=== PATIENT | female | born 1995 | race Caucasian/White ===

== ENCOUNTER 2017-04-15 21:09 | Emergency (ER) | payer OTHER ==
[~2017-04-15] VITALS: Ht 167.6 cm; Wt 65.8 kg
[~2017-04-15 21:09] MED LIST: AMOXICILLIN500 M2 PO; AMOXICILLIN500 M3 PO; AMOXICILLIN500 MG PO; AMOXIL500 MG PO; AVPAK AZITHROM250 MG PO; CEPHALEXIN500 M1 PO; CLARITIN10 MG PO; COLACE-T100 MG PO; FLONASE ALLERG9.9 ML NAS; HYDROCODONE BIT1 T11 PO; IBUPROFEN600 MG PO; MACROBID100 M1 PO; Motrin,Rufen800 MG PO; NKHM; PERCOCET 325 MG1 TA2 PO; PREDNISONE10 MG PO; PRENA; PRENATAL1 TA3 PO; PROZAC20 MG PO; Percocet 325 MG1 TAB PO; ROBITUSSIN AC 110 ML PO; SUPREX FERROUS325 MG PO
[2017-04-15 21:31] LABS: HEMATOCRIT 37.5 % (37.0-47.0); HEMOGLOBIN 12.5 g/dl (12.0-16.0); MEAN CELL VOLUME 86.4 fl (81.0-99.0); MEAN CORPUSCULAR HGB 28.8 pg (27.0-31.0); MEAN CORPUSCULAR HGB CONC 33.3 g/dl (33.0-37.0); MEAN PLATELET VOLUME 10.4 fl (9.6-12.3); PLATELET COUNT AUTOMATED 162 10*3/uL (130-400); RED BLOOD COUNT 4.34 10*6/uL (4.10-5.10); WHITE BLOOD COUNT 5.2 10*3/uL (4.8-10.8)
[2017-04-15 22:05] LABS: EOSINOPHIL # 0.1 10*3/uL (0-0.4); EOSINOPHILS 2 % (1-4); LYMPHOCYTE # 1.7 10*3/uL (1.3-4.4); MONOCYTE # 0.2 10*3/uL (0.1-1.0); NEUTROPHIL # 3.2 10*3/uL (2.3-7.9); NEUTROPHILS 61 % (47-73); TOTAL CELLS COUNTED 100 #CELLS
[2017-04-15 22:06] LABS: PLATELET SUFFICIENCY NORMAL (NORMAL)
[2017-04-15] MEDS ORDERED: Motrin,Rufen800 MG PO (22:52)
[2017-04-15] MEDS ORDERED: AMOXICILLIN500 M2 PO (22:52)
== END 2017-04-15 23:26 | disposition home or self-care (01) ==
LOC: ED 21:09
PROVIDERS: Emergency Medicine Emergency Medical Services
DX: J40 Bronchitis, not specified as acute or chronic (principal); J02.0 Streptococcal pharyngitis; F17.200 Nicotine dependence, unspecified, uncomplicated; Z79.899 Other long term (current) drug therapy

== ENCOUNTER 2017-05-04 09:58 | Emergency (ER) | payer OTHER ==
[~2017-05-04] VITALS: Ht 167.6 cm; Wt 65.8 kg
[2017-05-04 10:36] LABS: BILIRUBIN NEGATIVE (NEGATIVE); BLOOD NEGATIVE (NEGATIVE); CLARITY SL CLOUDY (CLEAR); COLOR YELLOW (YELLOW); GLUCOSE NEGATIVE (NEGATIVE); KETONE NEGATIVE (NEGATIVE); LEUKO ESTERASE 1+ (NEGATIVE); NITRITE NEGATIVE (NEGATIVE); PROTEIN NEGATIVE (NEGATIVE); SPECIFIC GRAVITY 1.015 (1.005-1.030); UROBILINOGEN 0.2 E.U./dl (0.2-1.0)
[2017-05-04 10:36] LABS: HEMATOCRIT 36.3 % (37.0-47.0); HEMOGLOBIN 11.9 g/dl (12.0-16.0); MEAN CELL VOLUME 86.8 fl (81.0-99.0); MEAN CORPUSCULAR HGB 28.5 pg (27.0-31.0); MEAN CORPUSCULAR HGB CONC 32.8 g/dl (33.0-37.0); MEAN PLATELET VOLUME 10.1 fl (9.6-12.3); PLATELET COUNT AUTOMATED 160 10*3/uL (130-400); RED BLOOD COUNT 4.18 10*6/uL (4.10-5.10); RED CELL DISTRI WIDTH 14.1 % (0-14.5); WHITE BLOOD COUNT 4.3 10*3/uL (4.8-10.8)
[2017-05-04 10:41] LABS: BACTERIA TRACE; MUCOUS 1+; URINE REFLEX COMMENT YES (NO)
[2017-05-04 10:51] LABS: ALBUMIN 3.4 gm/dl (3.1-4.5); ALKALINE PHOSPHATASE 94 U/L (45-117); BILIRUBIN, TOTAL 0.7 mg/dl (0.2-1.0); BUN 8 mg/dl (7-24); CARBON DIOXIDE 26 mmol/L (21-32); CHLORIDE 106 mmol/L (98-107); EST GLOM FILT AFRICAN AMERICAN > 60 ml/min; GLUCOSE 89 mg/dL (65-99); POTASSIUM 3.7 mmol/L (3.5-5.1); SGOT/AST 53 IU/L (3-35); SGPT/ALT 52 U/L (12-78); SODIUM 138 mmol/L (136-145); TOTAL PROTEIN 7.1 gm/dL (6.4-8.2)
[2017-05-04 11:01] LABS: ATYPICAL LYMPHS 2 % (0-0); BASOPHILS 1 % (0-1); LYMPHOCYTE # 1.7 10*3/uL (1.3-4.4); MONOCYTE # 0.1 10*3/uL (0.1-1.0); NEUTROPHIL # 2.5 10*3/uL (2.3-7.9); NEUTROPHILS 58 % (47-73); PLATELET SUFFICIENCY NORMAL (NORMAL); TOTAL CELLS COUNTED 100 #CELLS
[2017-05-04] MEDS ORDERED: ZOFRAN ODT4 MG SL (11:11)
[2017-05-04] MEDS ORDERED: BACTRIM DS 8001 TA1 PO (11:11)
== END 2017-05-04 11:16 | disposition home or self-care (01) ==
LOC: ED 09:58
PROVIDERS: Registered Nurse
DX: N30.00 Acute cystitis without hematuria (principal); K52.9 Noninfective gastroenteritis and colitis, unspecified; F17.200 Nicotine dependence, unspecified, uncomplicated; Z79.899 Other long term (current) drug therapy

== ENCOUNTER 2017-05-08 08:50 | Inpatient (IN) | payer OTHER ==
[~2017-05-08] VITALS: Ht 167.6 cm; Wt 62.3 kg
[~2017-05-08 08:50] MED LIST changes: +BACTRIM DS 8001 TA1 PO; +ZOFRAN ODT4 MG SL
[2017-05-08 08:58] VITALS: BP 115/56
[2017-05-08 09:28] LABS: HEMATOCRIT 33.4 % (37.0-47.0); HEMOGLOBIN 11.1 g/dl (12.0-16.0); MEAN CELL VOLUME 85.6 fl (81.0-99.0); MEAN CORPUSCULAR HGB 28.5 pg (27.0-31.0); MEAN CORPUSCULAR HGB CONC 33.2 g/dl (33.0-37.0); MEAN PLATELET VOLUME 10.6 fl (9.6-12.3); PLATELET COUNT AUTOMATED 118 10*3/uL (130-400); RED CELL DISTRI WIDTH 13.8 % (0-14.5); WHITE BLOOD COUNT 2.8 10*3/uL (4.8-10.8)
[2017-05-08 09:45] LABS: ALBUMIN 3.4 gm/dl (3.1-4.5); ALKALINE PHOSPHATASE 128 U/L (45-117); BILIRUBIN, TOTAL 0.3 mg/dl (0.2-1.0); BUN 5 mg/dl (7-24); CARBON DIOXIDE 22 mmol/L (21-32); CHLORIDE 104 mmol/L (98-107); EST GLOM FILT AFRICAN AMERICAN > 60 ml/min; GLUCOSE 82 mg/dL (65-99); POTASSIUM 3.5 mmol/L (3.5-5.1); SGOT/AST 102 IU/L (3-35); SGPT/ALT 69 U/L (12-78); SODIUM 136 mmol/L (136-145); TOTAL PROTEIN 7.3 gm/dL (6.4-8.2)
[2017-05-08 09:46] LABS: BILIRUBIN 1+ (NEGATIVE); BLOOD NEGATIVE (NEGATIVE); CLARITY SL CLOUDY (CLEAR); COLOR YELLOW (YELLOW); GLUCOSE NEGATIVE (NEGATIVE); KETONE TRACE (NEGATIVE); LEUKO ESTERASE 3+ (NEGATIVE); NITRITE NEGATIVE (NEGATIVE); PROTEIN NEGATIVE (NEGATIVE); SPECIFIC GRAVITY 1.025 (1.005-1.030)
[2017-05-08 09:51] LABS: ATYPICAL LYMPHS 2 % (0-0); EOSINOPHIL # 0.2 10*3/uL (0-0.4); EOSINOPHILS 6 % (1-4); LYMPHOCYTE # 0.9 10*3/uL (1.3-4.4); MONOCYTE # 0.1 10*3/uL (0.1-1.0); NEUTROPHIL # 1.7 10*3/uL (2.3-7.9); NEUTROPHILS 59 % (47-73); TOTAL CELLS COUNTED 100 #CELLS
[2017-05-08 09:52] LABS: PLATELET SUFFICIENCY LOW (NORMAL)
[2017-05-08 09:54] LABS: WBC 31-40 wbc/hpf (0-5)
[2017-05-08 09:55] LABS: MUCOUS TRACE; URINE REFLEX COMMENT YES (NO)
[2017-05-08 09:57] VITALS: BP 99/49
[2017-05-08 11:00] VITALS: BP 99/60
[2017-05-08 12:00] VITALS: BP 99/60
[2017-05-08 16:00] VITALS: BP 104/64
[2017-05-08 20:00] VITALS: BP 105/54
[2017-05-09] VITALS: BP 96/56
[2017-05-09 06:17] LABS: HEMATOCRIT 29.5 % (37.0-47.0); HEMOGLOBIN 9.4 g/dl (12.0-16.0); MEAN CELL VOLUME 88.1 fl (81.0-99.0); MEAN CORPUSCULAR HGB 28.1 pg (27.0-31.0); MEAN CORPUSCULAR HGB CONC 31.9 g/dl (33.0-37.0); MEAN PLATELET VOLUME 10.8 fl (9.6-12.3); PLATELET COUNT AUTOMATED 93 10*3/uL (130-400); RED BLOOD COUNT 3.35 10*6/uL (4.10-5.10); RED CELL DISTRI WIDTH 14.2 % (0-14.5); WHITE BLOOD COUNT 2.2 10*3/uL (4.8-10.8)
[2017-05-09 06:30] LABS: ALBUMIN 2.4 gm/dl (3.1-4.5); ALKALINE PHOSPHATASE 108 U/L (45-117); BILIRUBIN, TOTAL 0.2 mg/dl (0.2-1.0); BUN 4 mg/dl (7-24); CARBON DIOXIDE 21 mmol/L (21-32); CHLORIDE 113 mmol/L (98-107); CHOLESTEROL 52 mg/dL (<200); EST GLOM FILT AFRICAN AMERICAN > 60 ml/min; FREE T4 1.22 ng/dl (0.76-1.46); GLUCOSE 82 mg/dL (65-99); HDL CHOLESTEROL 24 mg/dl (40-60); LDL CHOLESTEROL 20 mg/dL (9-159); MAGNESIUM 1.5 mg/dL (1.5-2.1); PHOSPHOROUS 2.7 mg/dL (2.5-4.9); POTASSIUM 3.5 mmol/L (3.5-5.1); SGOT/AST 85 IU/L (3-35); SGPT/ALT 63 U/L (12-78); SODIUM 143 mmol/L (136-145); TOTAL PROTEIN 5.4 gm/dL (6.4-8.2); TRIGLYCERIDES 41 mg/dl (<150); VLDL CHOLESTEROL 8 mg/dL (6-40)
[2017-05-09 06:40] LABS: INTERNATIONAL NORM RATIO 1.2 (2.0-3.5); PROTHROMBIN TIME 12.3 SECONDS (9.0-12.4)
[2017-05-09 06:47] LABS: ATYPICAL LYMPHS 3 % (0-0); EOSINOPHIL # 0.2 10*3/uL (0-0.4); EOSINOPHILS 9 % (1-4); LYMPHOCYTE # 1.3 10*3/uL (1.3-4.4); METAMYELOCYTES 1 % (0-0); NEUTROPHIL # 0.7 10*3/uL (2.3-7.9); NEUTROPHILS 31 % (47-73); PLATELET SUFFICIENCY LOW (NORMAL); TOTAL CELLS COUNTED 100 #CELLS
[2017-05-09 06:53] LABS: HEMOGLOBIN A1c 4.8 % (4.8-5.6)
[2017-05-09 08:00] VITALS: BP 90/50
[2017-05-09 09:27] LABS: VITAMIN D, 25-HYDROXY 38.3 ng/mL (30-100)
[2017-05-09 09:28] LABS: FOLIC ACID 6.12 ng/mL (>5.38)
[2017-05-09 12:00] VITALS: BP 100/62
[2017-05-09 16:00] VITALS: BP 111/64
[2017-05-09 20:00] VITALS: BP 106/65
[2017-05-10] VITALS: BP 107/67
[2017-05-10 06:29] LABS: HEMATOCRIT 28.2 % (37.0-47.0); HEMOGLOBIN 9.4 g/dl (12.0-16.0); MEAN CELL VOLUME 86.8 fl (81.0-99.0); MEAN CORPUSCULAR HGB 28.9 pg (27.0-31.0); MEAN CORPUSCULAR HGB CONC 33.3 g/dl (33.0-37.0); MEAN PLATELET VOLUME 10.9 fl (9.6-12.3); PLATELET COUNT AUTOMATED 88 10*3/uL (130-400); RED BLOOD COUNT 3.25 10*6/uL (4.10-5.10); RED CELL DISTRI WIDTH 14.1 % (0-14.5); WHITE BLOOD COUNT 2.9 10*3/uL (4.8-10.8)
[2017-05-10 06:54] LABS: BUN 5 mg/dl (7-24); CARBON DIOXIDE 20 mmol/L (21-32); CHLORIDE 113 mmol/L (98-107); EST GLOM FILT AFRICAN AMERICAN > 60 ml/min; GLUCOSE 87 mg/dL (65-99); POTASSIUM 3.6 mmol/L (3.5-5.1); SODIUM 141 mmol/L (136-145)
[2017-05-10 07:04] LABS: ATYPICAL LYMPHS 1 % (0-0); BASOPHIL # 0.1 10*3/uL (0-0.1); BASOPHILS 2 % (0-1); EOSINOPHIL # 0.1 10*3/uL (0-0.4); EOSINOPHILS 4 % (1-4); LYMPHOCYTE # 1.9 10*3/uL (1.3-4.4); MONOCYTE # 0.1 10*3/uL (0.1-1.0); NEUTROPHIL # 0.8 10*3/uL (2.3-7.9); NEUTROPHILS 26 % (47-73); PLATELET SUFFICIENCY LOW (NORMAL); TOTAL CELLS COUNTED 100 #CELLS
[2017-05-10 08:00] VITALS: BP 111/59
[2017-05-10 12:00] VITALS: BP 114/61
== END 2017-05-10 16:39 | disposition home or self-care (01) | DRG 871 ==
LOC: ED 08:50 → 5E 10:07 → EDHOLD 10:07 → 5E 10:25
PROVIDERS: Hospitalist; Internal Medicine Nephrology; Nurse Practitioner Family
DX: A41.9 Sepsis, unspecified organism (principal); E43 Unspecified severe protein-calorie malnutrition; D61.811 Other drug-induced pancytopenia; N39.0 Urinary tract infection, site not specified; A59.9 Trichomoniasis, unspecified; F17.210 Nicotine dependence, cigarettes, uncomplicated; F41.1 Generalized anxiety disorder; R31.9 Hematuria, unspecified; Z82.5 Family history of asthma and other chronic lower respiratory diseases; Z98.891 History of uterine scar from previous surgery; Z79.899 Other long term (current) drug therapy; Z68.22 Body mass index [BMI] 22.0-22.9, adult

== ENCOUNTER 2017-08-31 08:22 | Emergency (ER) | payer OTHER ==
[~2017-08-31] VITALS: Ht 167.6 cm; Wt 56.2 kg
[2017-08-31] MEDS ORDERED: Motrin,Rufen800 MG PO (09:25)
== END 2017-08-31 09:53 | disposition home or self-care (01) ==
LOC: ED 08:22
DX: R51 Headache (principal); R11.0 Nausea; F17.200 Nicotine dependence, unspecified, uncomplicated

== ENCOUNTER 2017-09-22 11:44 | Emergency (ER) | payer OTHER ==
[~2017-09-22] VITALS: Ht 167.6 cm; Wt 54.4 kg
== END 2017-09-22 13:56 | disposition home or self-care (01) ==
LOC: ED 11:44
DX: S09.8XXA Other specified injuries of head, initial encounter (principal); F17.200 Nicotine dependence, unspecified, uncomplicated; Z79.899 Other long term (current) drug therapy; V49.49XA Driver injured in collision with other motor vehicles in traffic accident, initial encounter; Y93.89 Activity, other specified; Y92.481 Parking lot as the place of occurrence of the external cause; Y99.8 Other external cause status

== ENCOUNTER 2017-10-15 17:58 | Emergency (ER) | payer OTHER ==
[~2017-10-15] VITALS: Ht 167.6 cm; Wt 61.2 kg
[2017-10-15] MEDS ORDERED: ZITHROMAX250 MG PO (20:18)
== END 2017-10-15 22:58 | disposition home or self-care (01) ==
LOC: ED 17:58
DX: J40 Bronchitis, not specified as acute or chronic (principal); F17.200 Nicotine dependence, unspecified, uncomplicated; Z98.890 Other specified postprocedural states; Z79.899 Other long term (current) drug therapy

== ENCOUNTER 2017-11-04 08:33 | Emergency (ER) | payer OTHER ==
[~2017-11-04] VITALS: Ht 167.6 cm; Wt 61.2 kg
[~2017-11-04 08:33] MED LIST changes: +ZITHROMAX250 MG PO
[2017-11-04] MEDS ORDERED: AUGMENTIN 875875 MG PO (09:06)
[2017-11-04] MEDS ORDERED: Motrin,Rufen800 MG PO (09:06)
== END 2017-11-04 10:05 | disposition home or self-care (01) ==
LOC: ED 08:33
DX: H66.91 Otitis media, unspecified, right ear (principal); F17.200 Nicotine dependence, unspecified, uncomplicated; Z98.890 Other specified postprocedural states; Z79.899 Other long term (current) drug therapy

== ENCOUNTER 2017-11-14 15:01 | Emergency (ER) | payer OTHER ==
[~2017-11-14] VITALS: Ht 167.6 cm; Wt 61.2 kg
[~2017-11-14 15:01] MED LIST changes: +AUGMENTIN 875875 MG PO
== END 2017-11-14 16:11 | disposition home or self-care (01) ==
LOC: ED 15:01
DX: Z32.02 Encounter for pregnancy test, result negative (principal); F17.200 Nicotine dependence, unspecified, uncomplicated; Z98.890 Other specified postprocedural states; Z79.899 Other long term (current) drug therapy

== ENCOUNTER 2017-11-23 09:50 | Emergency (ER) | payer OTHER ==
[~2017-11-23] VITALS: Ht 167.6 cm; Wt 61.2 kg
[2017-11-23] MEDS ORDERED: CLARITIN10 MG PO (10:12)
[2017-11-23] MEDS ORDERED: ROBITUSSIN DM 105 ML PO (10:12)
[2017-11-23] MEDS ORDERED: PREDNISONE10 MG PO (10:12)
[2017-11-23] MEDS ORDERED: FLONASE ALLERG9.9 ML NAS (10:12)
[2017-11-23] MEDS ORDERED: TAMIFLU 75MG CA75 MG PO (10:57)
== END 2017-11-23 11:51 | disposition home or self-care (01) ==
LOC: ED 09:50
DX: J10.1 Influenza due to other identified influenza virus with other respiratory manifestations (principal); R03.0 Elevated blood-pressure reading, without diagnosis of hypertension; F17.200 Nicotine dependence, unspecified, uncomplicated; Z98.890 Other specified postprocedural states; Z79.899 Other long term (current) drug therapy

== ENCOUNTER 2018-01-15 17:03 | Emergency (ER) | payer OTHER ==
[~2018-01-15] VITALS: Ht 167.6 cm; Wt 61.2 kg
[~2018-01-15 17:03] MED LIST changes: +ROBITUSSIN DM 105 ML PO; +TAMIFLU 75MG CA75 MG PO
[2018-01-15] MEDS ORDERED: LEVOFLOXACIN500 MG PO (18:13)
[2018-01-15] MEDS ORDERED: PROAIR HFA8.5 GM INH (18:13)
[2018-01-15] MEDS ORDERED: MEDROL DOSEPAK4 MG PO (18:13)
== END 2018-01-15 18:19 | disposition home or self-care (01) ==
LOC: ED 17:03
DX: J18.9 Pneumonia, unspecified organism (principal); J40 Bronchitis, not specified as acute or chronic; F17.200 Nicotine dependence, unspecified, uncomplicated; Z98.890 Other specified postprocedural states; Z79.899 Other long term (current) drug therapy

== ENCOUNTER → 2018-02-04 | Outpatient (CLI) | payer OTHER ==
[~2018-02-04] MED LIST changes: +LEVOFLOXACIN500 MG PO; +MEDROL DOSEPAK4 MG PO; +PROAIR HFA8.5 GM INH
== END | disposition home or self-care (01) ==
LOC: CARD 10:32
DX: G71.0 Muscular dystrophy (principal); F41.9 Anxiety disorder, unspecified; Z72.0 Tobacco use

== ENCOUNTER 2018-02-13 22:53 | Emergency (ER) | payer OTHER ==
[~2018-02-13] VITALS: Ht 167.6 cm; Wt 56.7 kg
[2018-02-13] MEDS ORDERED: CLINDAMYCIN HC300 MG PO (23:21)
== END 2018-02-13 23:33 | disposition home or self-care (01) ==
LOC: ED 22:53
DX: K08.89 Other specified disorders of teeth and supporting structures (principal); F17.200 Nicotine dependence, unspecified, uncomplicated; Z79.899 Other long term (current) drug therapy; Z98.890 Other specified postprocedural states

== ENCOUNTER 2018-02-15 22:20 | Emergency (ER) | payer OTHER ==
[~2018-02-15] VITALS: Ht 167.6 cm; Wt 56.7 kg
[~2018-02-15 22:20] MED LIST changes: +CLINDAMYCIN HC300 MG PO
[2018-02-15] MEDS ORDERED: ANAPROX DS550 MG PO (22:51)
== END 2018-02-16 00:36 | disposition home or self-care (01) ==
LOC: ED 22:20
DX: K08.89 Other specified disorders of teeth and supporting structures (principal); F17.200 Nicotine dependence, unspecified, uncomplicated

== ENCOUNTER 2018-02-18 18:32 | Emergency (ER) | payer OTHER ==
[~2018-02-18] VITALS: Ht 167.6 cm; Wt 61.2 kg
[~2018-02-18 18:32] MED LIST changes: +ANAPROX DS550 MG PO
[2018-02-18 19:09] LABS: BASO % 0.2 % (0.0-1.0); EOS # 0.1 10*3/uL (0.0-0.4); EOS % 1.3 % (1.0-4.0); HEMATOCRIT 32.3 % (37.0-47.0); HEMOGLOBIN 10.8 g/dl (12.0-16.0); LYMPH % 32.8 % (27.0-41.0); MEAN CELL VOLUME 88.3 fl (81.0-99.0); MEAN CORPUSCULAR HGB 29.5 pg (27.0-31.0); MEAN CORPUSCULAR HGB CONC 33.4 g/dl (33.0-37.0); MEAN PLATELET VOLUME 9.6 fl (9.6-12.3); MONO # 0.3 10*3/uL (0.1-1.0); MONO % 5.1 % (3.0-9.0); NEUT # 3.7 10*3/uL (2.3-7.9); NEUT % 60.6 % (47.0-73.0); PLATELET COUNT AUTOMATED 185 10*3/uL (130-400); RED BLOOD COUNT 3.66 10*6/uL (4.10-5.10); RED CELL DISTRI WIDTH 12.6 % (0-14.5); WHITE BLOOD COUNT 6.1 10*3/uL (4.8-10.8)
== END 2018-02-18 19:52 | disposition home or self-care (01) ==
LOC: ED 18:32
PROVIDERS: Physician Assistant
DX: K91.840 Postprocedural hemorrhage of a digestive system organ or structure following a digestive system procedure (principal); F17.200 Nicotine dependence, unspecified, uncomplicated; Z98.890 Other specified postprocedural states; Z79.899 Other long term (current) drug therapy

== ENCOUNTER 2018-03-28 20:06 | Emergency (ER) | payer OTHER ==
[~2018-03-28] VITALS: Ht 167.6 cm; Wt 61.2 kg
[2018-03-28] MEDS ORDERED: CLINDAMYCIN HC300 MG PO (20:41)
== END 2018-03-28 20:45 | disposition home or self-care (01) ==
LOC: ED 20:06
DX: K04.7 Periapical abscess without sinus (principal); K02.9 Dental caries, unspecified; Z88.0 Allergy status to penicillin; Z79.899 Other long term (current) drug therapy

== ENCOUNTER 2018-06-12 09:18 | Emergency (ER) | payer OTHER ==
[~2018-06-12] VITALS: Ht 167.6 cm; Wt 52.2 kg
[2018-06-12 09:41] LABS: BILIRUBIN NEGATIVE (NEGATIVE); BLOOD 3+ (NEGATIVE); CLARITY CLOUDY (CLEAR); COLOR YELLOW (YELLOW); GLUCOSE NEGATIVE (NEGATIVE); KETONE NEGATIVE (NEGATIVE); LEUKO ESTERASE 1+ (NEGATIVE); NITRITE POSITIVE (NEGATIVE)
[2018-06-12 09:56] LABS: BACTERIA 4+; RBC TNTC rbc/hpf (0-2); WBC TNTC wbc/hpf (0-5)
[2018-06-12 10:10] LABS: BASO % 0.2 % (0.0-1.0); EOS % 0.5 % (1.0-4.0); HEMATOCRIT 39.3 % (37.0-47.0); HEMOGLOBIN 13.1 g/dl (12.0-16.0); LYMPH % 12.4 % (27.0-41.0); MEAN CELL VOLUME 89.1 fl (81.0-99.0); MEAN CORPUSCULAR HGB 29.7 pg (27.0-31.0); MEAN CORPUSCULAR HGB CONC 33.3 g/dl (33.0-37.0); MEAN PLATELET VOLUME 10.5 fl (9.6-12.3); MONO # 0.5 10*3/uL (0.1-1.0); MONO % 5.7 % (3.0-9.0); NEUT # 6.7 10*3/uL (2.3-7.9); NEUT % 80.7 % (47.0-73.0); PLATELET COUNT AUTOMATED 181 10*3/uL (130-400); RED BLOOD COUNT 4.41 10*6/uL (4.10-5.10); RED CELL DISTRI WIDTH 12.5 % (0-14.5); WHITE BLOOD COUNT 8.3 10*3/uL (4.8-10.8)
[2018-06-12 10:26] LABS: ALKALINE PHOSPHATASE 86 U/L (45-117); BUN 9 mg/dl (7-24); CHLORIDE 106 mmol/L (98-107); CREATININE 0.83 mg/dL (0.55-1.02); POTASSIUM 3.8 mmol/L (3.5-5.1); SGOT/AST 59 IU/L (3-35); SGPT/ALT 68 U/L (12-78); SODIUM 141 mmol/L (136-145); TOTAL PROTEIN 7.4 gm/dL (6.4-8.2)
[2018-06-12] MEDS ORDERED: SEPTDS PO (10:52)
[2018-06-12] MEDS ORDERED: ZOFRAN4 MG PO (10:52)
[2018-06-12] MEDS ORDERED: PYRIDIUM200 M1 PO (10:52)
== END 2018-06-12 10:58 | disposition home or self-care (01) ==
LOC: ED 09:18
PROVIDERS: Emergency Medicine; Nurse Practitioner Family
DX: N39.0 Urinary tract infection, site not specified (principal); F17.200 Nicotine dependence, unspecified, uncomplicated; Z88.0 Allergy status to penicillin; Z98.890 Other specified postprocedural states

== ENCOUNTER 2018-06-13 10:11 | Inpatient (IN) | payer OTHER ==
[~2018-06-13] VITALS: Ht 167.6 cm; Wt 55.3 kg
[~2018-06-13 10:11] MED LIST changes: +PYRIDIUM200 M1 PO; +SEPTDS PO; +ZOFRAN4 MG PO
[2018-06-13 10:12] VITALS: BP 96/48
[2018-06-13 10:42] LABS: HEMATOCRIT 36.6 % (37.0-47.0); HEMOGLOBIN 12.5 g/dl (12.0-16.0); MEAN CELL VOLUME 87.1 fl (81.0-99.0); MEAN CORPUSCULAR HGB 29.8 pg (27.0-31.0); MEAN CORPUSCULAR HGB CONC 34.2 g/dl (33.0-37.0); MEAN PLATELET VOLUME 10.8 fl (9.6-12.3); RED CELL DISTRI WIDTH 12.8 % (0-14.5); WHITE BLOOD COUNT 8.2 10*3/uL (4.8-10.8)
[2018-06-13 10:43] VITALS: BP 107/53
[2018-06-13 10:48] LABS: BILIRUBIN 1+ (NEGATIVE); BLOOD 3+ (NEGATIVE); CLARITY CLOUDY (CLEAR); COLOR ORANGE (YELLOW); GLUCOSE 1+ (NEGATIVE); INTERNATIONAL NORM RATIO 1.3 (2.0-3.5); KETONE TRACE (NEGATIVE); NITRITE POSITIVE (NEGATIVE); PH 6.5 (5.0-9.0); SPECIFIC GRAVITY 1.015 (1.005-1.030); UROBILINOGEN >= 8.0 E.U./dl (0.2-1.0)
[2018-06-13 10:52] LABS: LEUKO ESTERASE 2+ (NEGATIVE)
[2018-06-13 11:01] LABS: ALBUMIN 3.3 gm/dl (3.1-4.5); ALKALINE PHOSPHATASE 69 U/L (45-117); BUN 6 mg/dl (7-24); CHLORIDE 107 mmol/L (98-107); CREATININE 0.85 mg/dL (0.55-1.02); POTASSIUM 3.5 mmol/L (3.5-5.1); SGOT/AST 46 IU/L (3-35); SGPT/ALT 55 U/L (12-78); SODIUM 137 mmol/L (136-145); TOTAL PROTEIN 6.4 gm/dL (6.4-8.2); WBC TNTC wbc/hpf (0-5)
[2018-06-13 11:02] LABS: EPITHELIAL CELLS 15-20; RBC 31-40 rbc/hpf (0-2)
[2018-06-13 11:04] LABS: BACTERIA 2+; MUCOUS 2+
[2018-06-13 11:05] LABS: TROPONIN I < 0.015 ng/ml (<0.045)
[2018-06-13 11:18] LABS: PLATELET COUNT AUTOMATED 126 10*3/uL (130-400)
[2018-06-13 11:20] LABS: BURR CELLS FEW; PLATELET SUFFICIENCY LOW (NORMAL); TOTAL CELLS COUNTED 100 #CELLS
[2018-06-13 12:15] VITALS: BP 108/57
[2018-06-13 16:00] VITALS: BP 101/52
[2018-06-13 20:00] VITALS: BP 107/51
[2018-06-14 00:42] VITALS: BP 115/33
[2018-06-14 06:39] LABS: EOS # 0.1 10*3/uL (0.0-0.4); EOS % 3.3 % (1.0-4.0); HEMATOCRIT 32.7 % (37.0-47.0); HEMOGLOBIN 10.7 g/dl (12.0-16.0); LYMPH # 0.2 10*3/uL (1.3-4.4); LYMPH % 6.6 % (27.0-41.0); MEAN CORPUSCULAR HGB 29.6 pg (27.0-31.0); MEAN CORPUSCULAR HGB CONC 32.7 g/dl (33.0-37.0); MEAN PLATELET VOLUME 11.5 fl (9.6-12.3); MONO # 0.1 10*3/uL (0.1-1.0); NEUT # 2.3 10*3/uL (2.3-7.9); NEUT % 85.7 % (47.0-73.0); RED BLOOD COUNT 3.61 10*6/uL (4.10-5.10); WHITE BLOOD COUNT 2.7 10*3/uL (4.8-10.8)
[2018-06-14 06:42] LABS: PLATELET COUNT AUTOMATED 82 10*3/uL (130-400)
[2018-06-14 06:43] LABS: MEAN CELL VOLUME 90.6 fl (81.0-99.0)
[2018-06-14 07:04] LABS: ALBUMIN 2.7 gm/dl (3.1-4.5); ALKALINE PHOSPHATASE 96 U/L (45-117); BUN 5 mg/dl (7-24); CHLORIDE 111 mmol/L (98-107); CREATININE 0.61 mg/dL (0.55-1.02); FREE T4 1.14 ng/dl (0.76-1.46); PHOSPHOROUS 2.7 mg/dL (2.5-4.9); POTASSIUM 3.8 mmol/L (3.5-5.1); SGOT/AST 117 IU/L (3-35); SGPT/ALT 119 U/L (12-78); SODIUM 140 mmol/L (136-145); TOTAL PROTEIN 5.7 gm/dL (6.4-8.2)
[2018-06-14 07:09] LABS: THYROID STIM HORMONE (HS) 0.486 uIU/ml (0.358-4.75)
[2018-06-14 08:00] VITALS: BP 102/50
[2018-06-14 10:04] LABS: VITAMIN D, 25-HYDROXY 22.6 ng/mL (30-100)
[2018-06-14 12:00] VITALS: BP 100/56; BP 102/50
[2018-06-14] MEDS ORDERED: LEVAQUIN750 M1 PO (15:28)
[2018-06-14 16:00] VITALS: BP 98/59
[2018-06-16 11:04] LABS: HEPATITIS B SURFACE AG Negative (Negative); HEPATITIS C VIRUS ANTIBODY <0.1 s/co (0.0-0.9)
== END 2018-06-14 17:20 | disposition home or self-care (01) | DRG 872 ==
LOC: ED 10:11 → EDHOLD 11:29 → 5E 11:43
PROVIDERS: Internal Medicine; Physician Assistant; Registered Nurse
DX: A41.9 Sepsis, unspecified organism (principal); E44.0 Moderate protein-calorie malnutrition; N30.00 Acute cystitis without hematuria; Z68.1 Body mass index [BMI] 19.9 or less, adult; D69.6 Thrombocytopenia, unspecified; D64.9 Anemia, unspecified; R73.9 Hyperglycemia, unspecified; F41.1 Generalized anxiety disorder; Z72.0 Tobacco use; Z88.0 Allergy status to penicillin; Z82.5 Family history of asthma and other chronic lower respiratory diseases; Z87.440 Personal history of urinary (tract) infections; Z71.6 Tobacco abuse counseling

== ENCOUNTER 2018-07-30 19:18 | Emergency (ER) | payer OTHER ==
[~2018-07-30] VITALS: Ht 167.6 cm; Wt 59.0 kg
[~2018-07-30 19:18] MED LIST changes: +LEVAQUIN750 M1 PO
== END 2018-07-30 19:41 | disposition home or self-care (01) ==
LOC: ED 19:18
DX: K08.89 Other specified disorders of teeth and supporting structures (principal); F17.200 Nicotine dependence, unspecified, uncomplicated; Z97.2 Presence of dental prosthetic device (complete) (partial); Z88.0 Allergy status to penicillin; Z79.2 Long term (current) use of antibiotics

== ENCOUNTER 2018-08-15 08:33 | Emergency (ER) | payer OTHER | END 2018-08-15 09:05 | disposition home or self-care (01) | LOC: ED 08:33 | DX: N93.9 Abnormal uterine and vaginal bleeding, unspecified (principal); F17.200 Nicotine dependence, unspecified, uncomplicated; Z98.890 Other specified postprocedural states; Z88.0 Allergy status to penicillin; Z98.51 Tubal ligation status ==

== ENCOUNTER 2018-08-31 11:32 | Emergency (ER) | payer OTHER ==
[~2018-08-31] VITALS: Ht 167.6 cm; Wt 54.4 kg
[2018-08-31] MEDS ORDERED: ROBAXIN500 M1 PO (13:56)
[2018-08-31] MEDS ORDERED: NAPROSYN500 MG PO (13:56)
== END 2018-08-31 15:02 | disposition left against medical advice (07) ==
LOC: ED 11:32
DX: S16.1XXA Strain of muscle, fascia and tendon at neck level, initial encounter (principal); S80.10XA Contusion of unspecified lower leg, initial encounter; R51 Headache; F17.200 Nicotine dependence, unspecified, uncomplicated; Z88.0 Allergy status to penicillin; V43.52XA Car driver injured in collision with other type car in traffic accident, initial encounter; Y93.I9 Activity, other involving external motion; Y92.488 Other paved roadways as the place of occurrence of the external cause; Y99.8 Other external cause status

== ENCOUNTER 2019-07-14 08:43 | Emergency (ER) | payer OTHER ==
[~2019-07-14] VITALS: Ht 167.6 cm; Wt 55.3 kg
[~2019-07-14 08:43] MED LIST changes: +NAPROSYN500 MG PO; +PREDNISONE20 M1 PO; +ROBAXIN500 M1 PO; +TESSALON PERLE100 MG PO; +ZYRTEC10 MG PO
[2019-07-14] MEDS ORDERED: ZITHROMAX250 MG PO (10:57)
== END 2019-07-14 11:05 | disposition home or self-care (01) ==
LOC: ED 08:43
DX: J02.9 Acute pharyngitis, unspecified (principal); F17.200 Nicotine dependence, unspecified, uncomplicated; Z88.0 Allergy status to penicillin

== ENCOUNTER 2019-12-04 11:11 | Emergency (ER) | payer BC ==
[~2019-12-04] VITALS: Ht 167.6 cm; Wt 61.2 kg
[2019-12-04 11:31] LABS: BLOOD NEGATIVE (NEGATIVE); CLARITY SL CLOUDY (CLEAR); COLOR YELLOW (YELLOW); GLUCOSE NEGATIVE (NEGATIVE); KETONE NEGATIVE (NEGATIVE)
[2019-12-04 11:32] LABS: LEUKO ESTERASE NEGATIVE (NEGATIVE); NITRITE NEGATIVE (NEGATIVE); UROBILINOGEN 0.2 E.U./dl (0.2-1.0)
[2019-12-04 11:36] LABS: BACTERIA TRACE; BILIRUBIN 1+ (NEGATIVE); MUCOUS 1+
[2019-12-04 11:46] LABS: BASO % 0.1 % (0.0-1.0); EOS # 0.1 10*3/uL (0.0-0.4); EOS % 0.6 % (1.0-4.0); HEMATOCRIT 38.2 % (37.0-47.0); HEMOGLOBIN 12.8 g/dl (12.0-16.0); LYMPH # 0.6 10*3/uL (1.3-4.4); LYMPH % 7.1 % (27.0-41.0); MEAN CORPUSCULAR HGB 29.8 pg (27.0-31.0); MEAN CORPUSCULAR HGB CONC 33.5 g/dl (33.0-37.0); MEAN PLATELET VOLUME 10.4 fl (9.6-12.3); MONO # 0.4 10*3/uL (0.1-1.0); MONO % 5.1 % (3.0-9.0); NEUT # 7.3 10*3/uL (2.3-7.9); PLATELET COUNT AUTOMATED 167 10*3/uL (130-400); RED BLOOD COUNT 4.29 10*6/uL (4.10-5.10); RED CELL DISTRI WIDTH 12.5 % (0-14.5); WHITE BLOOD COUNT 8.4 10*3/uL (4.8-10.8)
[2019-12-04 12:01] LABS: ALKALINE PHOSPHATASE 76 U/L (45-117); BUN 9 mg/dl (7-24); CHLORIDE 110 mmol/L (98-107); CREATININE 0.64 mg/dL (0.55-1.02); LIPASE 93 U/L (73-393); POTASSIUM 3.8 mmol/L (3.5-5.1); SGOT/AST 52 IU/L (3-35); SGPT/ALT 68 U/L (12-78); SODIUM 140 mmol/L (136-145); TOTAL PROTEIN 7.5 gm/dL (6.4-8.2)
[2019-12-04] MEDS ORDERED: TYLENOL325 M1 PO (12:37)
[2019-12-04] MEDS ORDERED: NAPROSYN500 MG PO (12:37)
== END 2019-12-04 12:42 | disposition home or self-care (01) ==
LOC: ED 11:11
PROVIDERS: Emergency Medicine
DX: R10.2 Pelvic and perineal pain (principal); R19.7 Diarrhea, unspecified; R63.0 Anorexia; F17.200 Nicotine dependence, unspecified, uncomplicated; Z88.0 Allergy status to penicillin; Z79.899 Other long term (current) drug therapy; Z79.2 Long term (current) use of antibiotics

== ENCOUNTER 2020-03-15 20:50 | Emergency (ER) | payer BC ==
[~2020-03-15] VITALS: Ht 167.6 cm; Wt 54.4 kg
[~2020-03-15 20:50] MED LIST changes: +TYLENOL325 M1 PO
[2020-03-15 21:22] LABS: BILIRUBIN NEGATIVE (NEGATIVE); BLOOD NEGATIVE (NEGATIVE); CLARITY CLEAR (CLEAR); COLOR YELLOW (YELLOW); GLUCOSE NEGATIVE (NEGATIVE); KETONE NEGATIVE (NEGATIVE); LEUKO ESTERASE NEGATIVE (NEGATIVE); NITRITE NEGATIVE (NEGATIVE); UROBILINOGEN 0.2 E.U./dl (0.2-1.0)
[2020-03-15 21:23] LABS: BACTERIA 2+; EPITHELIAL CELLS TNTC; MUCOUS 1+; WBC 0-2 wbc/hpf (0-5)
[2020-03-15] MEDS ORDERED: CEPHALEXIN500 M1 PO (21:38)
== END 2020-03-15 22:01 | disposition home or self-care (01) ==
LOC: ED 20:50
PROVIDERS: Nurse Practitioner Family
DX: N39.0 Urinary tract infection, site not specified (principal); Z88.0 Allergy status to penicillin; Z87.891 Personal history of nicotine dependence

== ENCOUNTER 2021-01-17 19:19 | Emergency (ER) | payer OTHER ==
[~2021-01-17] VITALS: Ht 170.1 cm; Wt 54.4 kg
[2021-01-17 19:51] LABS: BILIRUBIN Negative (Negative); BLOOD Negative (Negative); CLARITY Clear (Clear); COLOR Yellow (Yellow); GLUCOSE Negative (Negative); KETONE Negative (Negative); LEUKO ESTERASE 1+ (Negative); NITRITE Negative (Negative); SPECIFIC GRAVITY <= 1.005 (1.001-1.030); UROBILINOGEN 0.2 E.U./dl (0.0-1.0)
[2021-01-17 20:03] LABS: BACTERIA TRACE; EPITHELIAL CELLS 0-2; RBC 0-2 rbc/hpf (0-2)
== END 2021-01-17 20:03 | disposition home or self-care (01) ==
LOC: ED 19:19
PROVIDERS: Physician Assistant
DX: Z32.02 Encounter for pregnancy test, result negative (principal); Z79.899 Other long term (current) drug therapy; Z88.0 Allergy status to penicillin; Z98.890 Other specified postprocedural states

== ENCOUNTER 2021-10-22 12:18 | Emergency (ER) | payer OTHER ==
[~2021-10-22] VITALS: Ht 167.6 cm; Wt 56.7 kg
[2021-10-22 15:34] LABS: BASO % 0.1 % (0.0-1.0); EOS % 0.3 % (1.0-4.0); HEMATOCRIT 37.9 % (37.0-47.0); LYMPH # 0.5 10*3/uL (1.3-4.4); MEAN CORPUSCULAR HGB CONC 33.8 g/dl (33.0-37.0); MEAN PLATELET VOLUME 10.4 fl (9.6-12.3); MONO # 0.2 10*3/uL (0.1-1.0); MONO % 2.8 % (3.0-9.0); NEUT # 6.3 10*3/uL (2.3-7.9); NEUT % 89.5 % (47.0-73.0); PLATELET COUNT AUTOMATED 149 10*3/uL (130-400); RED BLOOD COUNT 4.26 10*6/uL (4.10-5.10); RED CELL DISTRI WIDTH 12.4 % (0-14.5)
[2021-10-22 16:01] LABS: ALBUMIN 3.6 gm/dl (3.1-4.5); ALKALINE PHOSPHATASE 74 U/L (45-117); BUN 9 mg/dl (7-24); CHLORIDE 109 mmol/L (98-107); CREATININE 0.63 mg/dL (0.55-1.02); LIPASE 71 U/L (73-393); POTASSIUM 3.8 mmol/L (3.5-5.1); SGPT/ALT 42 U/L (12-78); SODIUM 138 mmol/L (136-145); TOTAL PROTEIN 6.9 gm/dL (6.4-8.2)
[2021-10-22 16:08] LABS: B-hCG (QUALITATIVE) NEGATIVE (NEGATIVE); SGOT/AST 39 IU/L (3-35)
[2021-10-22] MEDS ORDERED: ZOFRAN4 MG PO (17:54)
== END 2021-10-22 18:03 | disposition home or self-care (01) ==
LOC: ED 12:18
PROVIDERS: Physician Assistant
DX: K52.9 Noninfective gastroenteritis and colitis, unspecified (principal); Z20.822 Contact with and (suspected) exposure to COVID-19; F17.200 Nicotine dependence, unspecified, uncomplicated; Z88.0 Allergy status to penicillin

== ENCOUNTER 2022-02-27 11:11 | Emergency (ER) | payer OTHER ==
[~2022-02-27] VITALS: Ht 167.6 cm; Wt 56.7 kg
== END 2022-02-27 15:41 | disposition left against medical advice (07) ==
LOC: ED 11:11
DX: R10.9 Unspecified abdominal pain (principal); R07.81 Pleurodynia; Z53.21 Procedure and treatment not carried out due to patient leaving prior to being seen by health care provider

== ENCOUNTER 2022-05-23 06:28 | Emergency (ER) | payer OTHER ==
[~2022-05-23] VITALS: Ht 167.6 cm; Wt 54.4 kg
[2022-05-23 07:06] LABS: BASO % 0.2 % (0.0-1.0); EOS # 0.1 10*3/uL (0.0-0.4); EOS % 2.5 % (1.0-4.0); HEMATOCRIT 36.4 % (37.0-47.0); LYMPH # 1.3 10*3/uL (1.3-4.4); MEAN CORPUSCULAR HGB 30.6 pg (27.0-31.0); MEAN CORPUSCULAR HGB CONC 34.3 g/dl (33.0-37.0); MEAN PLATELET VOLUME 10.2 fl (9.6-12.3); MONO # 0.3 10*3/uL (0.1-1.0); MONO % 7.6 % (3.0-9.0); NEUT # 2.6 10*3/uL (2.3-7.9); NEUT % 59.5 % (47.0-73.0); PLATELET COUNT AUTOMATED 195 10*3/uL (130-400); RED BLOOD COUNT 4.09 10*6/uL (4.10-5.10); RED CELL DISTRI WIDTH 12.1 % (0-14.5); WHITE BLOOD COUNT 4.3 10*3/uL (4.8-10.8)
[2022-05-23 07:22] LABS: BILIRUBIN Negative (Negative); BLOOD Negative (Negative); CLARITY Cloudy (Clear); COLOR Yellow (Yellow); GLUCOSE Negative (Negative); KETONE Negative (Negative); LEUKO ESTERASE Trace (Negative); NITRITE Negative (Negative); PH 5.5 (4.5-8.0); SPECIFIC GRAVITY 1.025 (1.001-1.030); UROBILINOGEN 0.2 E.U./dl (0.0-1.0)
[2022-05-23 07:28] LABS: ALKALINE PHOSPHATASE 68 U/L (45-117); BUN 12 mg/dl (7-24); CHLORIDE 111 mmol/L (98-107); CREATININE 0.67 mg/dL (0.55-1.02); POTASSIUM 4.1 mmol/L (3.5-5.1); SGOT/AST 33 IU/L (3-35); SGPT/ALT 40 U/L (12-78); SODIUM 141 mmol/L (136-145)
[2022-05-23 08:06] LABS: BACTERIA 1+; CALCIUM OXALATE CRYSTALS Trace; EPITHELIAL CELLS 16-20; MUCOUS 1+
[2022-05-23] MEDS ORDERED: REGLAN10 M1 PO ×3 (08:30→08:50)
== END 2022-05-23 08:47 | disposition home or self-care (01) ==
LOC: ED 06:28
PROVIDERS: Emergency Medicine
DX: R10.30 Lower abdominal pain, unspecified (principal); R11.0 Nausea; Z88.0 Allergy status to penicillin; Z98.890 Other specified postprocedural states; Z87.891 Personal history of nicotine dependence

== ENCOUNTER 2022-11-05 02:07 | Emergency (ER) | payer OTHER ==
[~2022-11-05] VITALS: Wt 61.2 kg
[~2022-11-05 02:07] MED LIST changes: +REGLAN10 M1 PO
== END 2022-11-05 03:03 | disposition home or self-care (01) ==
LOC: ED 02:07
DX: F41.9 Anxiety disorder, unspecified (principal); F32.A Depression, unspecified; Z88.0 Allergy status to penicillin; Z98.890 Other specified postprocedural states; Z72.0 Tobacco use

== ENCOUNTER 2023-06-30 21:32 | Emergency (ER) | payer OTHER ==
[~2023-06-30] VITALS: Ht 165.1 cm; Wt 65.8 kg
== END 2023-06-30 23:34 | disposition home or self-care (01) ==
LOC: ED 21:32
DX: R51.9 Headache, unspecified (principal); R11.0 Nausea; M79.10 Myalgia, unspecified site; Z88.0 Allergy status to penicillin; Z98.890 Other specified postprocedural states; F17.290 Nicotine dependence, other tobacco product, uncomplicated; Z20.822 Contact with and (suspected) exposure to COVID-19

== ENCOUNTER 2024-01-29 08:57 | Emergency (ER) | payer OTHER ==
[~2024-01-29] VITALS: Ht 167.6 cm; Wt 54.4 kg
[2024-01-29] MEDS ORDERED: AVPAK AZITHROM250 M1 PO (09:17)
== END 2024-01-29 09:19 | disposition home or self-care (01) ==
LOC: ED 08:57
DX: J32.9 Chronic sinusitis, unspecified (principal); F32.A Depression, unspecified; F41.9 Anxiety disorder, unspecified; Z88.0 Allergy status to penicillin; Z98.890 Other specified postprocedural states; F17.200 Nicotine dependence, unspecified, uncomplicated

== ENCOUNTER 2024-10-01 09:22 | Emergency (ER) | payer OTHER ==
[~2024-10-01] VITALS: Ht 167.6 cm; Wt 61.2 kg
[~2024-10-01 09:22] MED LIST changes: +AVPAK AZITHROM250 M1 PO
[2024-10-01] MEDS ORDERED: diphenhydrAMINE hydrochloride 50 MG/ML VIAL IV ONE (09:35)
[2024-10-01] MEDS ORDERED: FAMOTIDINE 50 ML IV ONE (09:35)
[2024-10-01] MEDS ORDERED: SODIUM CHLORIDE 0.9% 1,000 ML IV ONE (09:35)
[2024-10-01] MEDS ORDERED: Metoclopramide Hydrochloride 10 MG/2 ML VIAL IV ONE (09:35)
[2024-10-01] MEDS ORDERED: Ketorolac Tromethamine 15 MG/ML VIAL IV ONE (09:40)
[2024-10-01 09:51] LABS: BASO % 0.2 % (0.0-1.0); EOS # 0.1 10*3/uL (0.0-0.4); EOS % 1.5 % (1.0-4.0); HEMATOCRIT 40.1 % (37.0-47.0); MEAN CELL VOLUME 87.2 fl (81.0-99.0); MEAN CORPUSCULAR HGB 30.7 pg (27.0-31.0); MEAN CORPUSCULAR HGB CONC 35.2 g/dl (33.0-37.0); MEAN PLATELET VOLUME 10.3 fl (9.6-12.3); MONO # 0.4 10*3/uL (0.1-1.0); MONO % 8.3 % (3.0-9.0); NEUT # 3.4 10*3/uL (2.3-7.9); NEUT % 72.1 % (47.0-73.0); PLATELET COUNT AUTOMATED 158 10*3/uL (130-400); RED CELL DISTRI WIDTH 11.9 % (0-14.5); WHITE BLOOD COUNT 4.7 10*3/uL (4.8-10.8)
[2024-10-01 10:05] LABS: BUN 12 mg/dl (9-23); CHLORIDE 105 mmol/L (98-107); POTASSIUM 3.3 mmol/L (3.4-5.1)
[2024-10-01] MEDS ORDERED: POTASSIUM CHLORIDE 20 MEQ TAB PO ONE (10:50)
[2024-10-01] MEDS ORDERED: Ondansetron4 MG PO (10:59)
== END 2024-10-01 11:47 | disposition home or self-care (01) ==
LOC: ED 09:22
PROVIDERS: Emergency Medicine
DX: R11.2 Nausea with vomiting, unspecified (principal); R19.7 Diarrhea, unspecified; R10.9 Unspecified abdominal pain; M79.10 Myalgia, unspecified site; F32.A Depression, unspecified; F41.9 Anxiety disorder, unspecified; F17.200 Nicotine dependence, unspecified, uncomplicated; Z88.0 Allergy status to penicillin; Z98.890 Other specified postprocedural states